=== PATIENT | female | born 1940 | race Caucasian/White ===

== ENCOUNTER 2019-04-02 15:23 | Inpatient (IN) ==
[2019-04-02 15:46] LABS: Basophils % 0.2 %; Hematocrit 45.1 % (35.3-44.9); Immature Granulocytes % 0.4 % (0-4); Lymphocytes % 7.3 %; Mean Corpuscular HGB Conc 35.5 g/dL (31.6-35.5); Mean Corpuscular Hemoglobin 30.9 pg (28.0-33.3); Mean Corpuscular Volume 87.2 fL (83.0-100.0); Mean Platelet Volume 11.8 fL (9.4-12.4); Monocytes # 1.5 K/mcL (0.0-1.3); Monocytes % 10.5 %; Neutrophils # 11.5 K/mcL (1.6-8.9); Platelet Count 314 K/mcL (140-400); Red Blood Count 5.17 M/mcL (3.82-4.97); Red Cell Distribution Width 13.5 % (11.5-14.5); Segmented Neutrophils % 81.6 %; White Blood Count 14.1 K/mcL (4.3-11.1)
[2019-04-02 16:07] LABS: Calcium 9.4 mg/dL (8.6-10.3); Potassium 3.8 mEq/L (3.5-5.1)
[2019-04-02] MEDS ORDERED: Ondansetron 4 MG/2 ML VIAL IVP ONE (16:42)
[2019-04-02] MEDS ORDERED: Ringers Solution, Lactated 1,000 ML IVC ONE (16:51)
[2019-04-02 17:02] LABS: Bilirubin,Urine Negative (Negative); Blood,Urine Negative (Negative); Clarity,Urine Cloudy (Clear); Color,Urine Yellow (Yellow); Glucose,Urine (UA) Normal (Normal); Ketones,Urine Negative (Negative); Leukocyte Esterase,Urine Small (Negative); Nitrite,Urine Negative (Negative); PH,Urine 5.5 pH Units (5.0-8.0); Protein,Urine 30 mg/dL (Neg-Trace); Specific Gravity,Urine 1.027 (1.010-1.025); Urobilinogen,Urine Normal (Normal)
[2019-04-02 17:04] LABS: Bacteria,Urine None Seen per hpf (None-Few); Hyaline Casts,Urine Few per lpf (None-Few); Squamous Epithelial Cell,Urine Many per lpf (None-Few)
[2019-04-02 17:11] LABS: Sodium, Urine 12.4 mEq/L
[2019-04-02] MEDS ORDERED: Ringers Solution, Lactated 1,000 ML ONE (17:12)
[2019-04-02 17:25] LABS: RBC,Urine 0-3 per hpf (0-3)
[2019-04-02 18:08] LABS: Albumin 3.9 g/dL (3.5-5.7); Albumin/Globulin Ratio 1.1 (1.1-2.2); Bilirubin,Indirect 0.8 mg/dL (0.0-1.0); Bilirubin,Total 0.8 mg/dL (0.3-1.0); Globulin 3.6 g/dL (2.4-3.5); Magnesium 2.2 mg/dL (1.6-2.6); Total Protein 7.5 g/dL (6.4-8.9)
[2019-04-02] MEDS ORDERED: *HR* Promethazine 25 MG/ML VIAL IVP ONE (18:39)
[2019-04-02] MEDS ORDERED: Naloxone 0.4 MG/ML INJ IVP PRN (20:37)
[2019-04-02 21:24] LABS: Calcium 8.9 mg/dL (8.6-10.3); Potassium 3.2 mEq/L (3.5-5.1)
[2019-04-03 01:21] LABS: Calcium 8.8 mg/dL (8.6-10.3)
[2019-04-03 05:09] LABS: Hematocrit 39.8 % (35.3-44.9); Hemoglobin 13.8 g/dL (11.5-15.4); Mean Corpuscular HGB Conc 34.7 g/dL (31.6-35.5); Mean Corpuscular Hemoglobin 30.5 pg (28.0-33.3); Mean Corpuscular Volume 88.1 fL (83.0-100.0); Mean Platelet Volume 11.8 fL (9.4-12.4); Platelet Count 302 K/mcL (140-400); Red Blood Count 4.52 M/mcL (3.82-4.97); Red Cell Distribution Width 13.4 % (11.5-14.5); White Blood Count 13.8 K/mcL (4.3-11.1)
[2019-04-03 05:23] LABS: Calcium 9.1 mg/dL (8.6-10.3); Potassium 3.2 mEq/L (3.5-5.1)
[2019-04-03] MEDS: Ondansetron 4 MG/2 ML VIAL IVP PRN ×2 (05:37→11:31)
[2019-04-03] MEDS ORDERED: Lidocaine Jelly 11 ml Syringe MM STA (08:15)
[2019-04-03] MEDS ORDERED: *HR* Promethazine 25 MG/ML VIAL IVP ONE (08:44)
[2019-04-03] MEDS ORDERED: Ondansetron 4 MG/2 ML VIAL IVP ONE ×2 (08:44→17:21)
[2019-04-03] MEDS ORDERED: Pantoprazole 40 MG VIAL IVP SCH (09:00)
[2019-04-03 09:33] LABS: Calcium 9.1 mg/dL (8.6-10.3); Potassium 3.3 mEq/L (3.5-5.1)
[2019-04-03] MEDS ORDERED: 0.9 % Sodium Chloride 1,000 ML IVC SCH (11:30)
[2019-04-03] MEDS ORDERED: Acetaminophen IV 1,000 MG/100 ML INFUS..BTL IVPB ONE (12:12)
[2019-04-03] MEDS ORDERED: Albuterol 2.5 MG/3 ML NEBULIZER IH ONE (12:28)
[2019-04-03] MEDS ORDERED: Ondansetron 4 MG/2 ML VIAL ONE (15:11)
[2019-04-03] MEDS ORDERED: *HR* Propofol 200 MG/20 ML VIAL IVP ONE (15:11)
[2019-04-03] MEDS ORDERED: Lidocaine -MPF 2% 2 ML VIAL ONE (15:11)
[2019-04-03] MEDS ORDERED: *HR* FentaNYL (PF) 100 MCG/2 ML VIAL ONE (15:11)
[2019-04-03] MEDS ORDERED: Dexamethasone 4 MG/ML VIAL ONE (15:11)
[2019-04-03] MEDS ORDERED: Lidocaine HCL 4 ML Topical Solution (Laryng-O-Jet Kit Sterile Pak) TP ONE (15:12)
[2019-04-03] MEDS ORDERED: Neostigmine Methylsulfate 3 MG/3 ML SYRINGE ONE (15:12)
[2019-04-03] MEDS ORDERED: *HR* Succinylcholine 200 MG/10 ML VIAL IVP ONE (15:12)
[2019-04-03] MEDS ORDERED: *HR* PHENYLEPHRINE 1,000 MCG/10 ML SYRINGE IVP ONE (15:13)
[2019-04-03] MEDS ORDERED: EPHEDrine 50 MG/ML VIAL ONE (15:14)
[2019-04-03] MEDS: *HR* HYDROmorphone (PF) 1 MG/ML SYRINGE IVP PRN ×2 (17:28→17:36)
[2019-04-03] MEDS ORDERED: Ringers Solution, Lactated 1,000 ML ONE (17:52)
[2019-04-03] MEDS ORDERED: Ondansetron 4 MG/2 ML VIAL IVP PRN (18:26)
[2019-04-03] MEDS: Acetaminophen IV 1,000 MG/100 ML INFUS..BTL IVPB SCH (18:44)
[2019-04-03 20:46] LABS: Calcium 8.4 mg/dL (8.6-10.3); Potassium 3.1 mEq/L (3.5-5.1)
[2019-04-04] MEDS: Acetaminophen IV 1,000 MG/100 ML INFUS..BTL IVPB SCH ×5 (00:35→23:34)
[2019-04-04] MEDS: ceFAZolin 1,000 MG in Water for inj. (sterile) 10 ML IVP SCH ×3 (00:37→17:51)
[2019-04-04 02:29] LABS: Basophils % 0.3 %; Hematocrit 39.3 % (35.3-44.9); Hemoglobin 13.9 g/dL (11.5-15.4); Immature Granulocytes % 1.4 % (0-4); Lymphocytes # 0.4 K/mcL (0.6-4.6); Lymphocytes % 3.3 %; Mean Corpuscular HGB Conc 35.4 g/dL (31.6-35.5); Mean Corpuscular Hemoglobin 30.4 pg (28.0-33.3); Mean Platelet Volume 11.9 fL (9.4-12.4); Monocytes % 7.5 %; Platelet Count 305 K/mcL (140-400); Red Blood Count 4.57 M/mcL (3.82-4.97); Red Cell Distribution Width 13.7 % (11.5-14.5); Segmented Neutrophils % 87.5 %; White Blood Count 12.6 K/mcL (4.3-11.1)
[2019-04-04 02:56] LABS: Calcium 8.3 mg/dL (8.6-10.3); Magnesium 2.3 mg/dL (1.6-2.6); Potassium 3.6 mEq/L (3.5-5.1)
[2019-04-04 03:07] LABS: Platelet Estimate Normal (Normal)
[2019-04-04] MEDS: 0.9 % Sodium Chloride 1,000 ML IVC SCH ×3 (08:22→19:38)
[2019-04-04] MEDS: Pantoprazole 40 MG VIAL IVP SCH (08:35)
[2019-04-04 15:56] LABS: Calcium 8.1 mg/dL (8.6-10.3); Potassium 3.2 mEq/L (3.5-5.1)
[2019-04-04] MEDS: *HR* Heparin 5,000 UNIT/ML VIAL SQ SCH ×2 (17:51→19:17)
[2019-04-05 01:13] LABS: Hematocrit 37.7 % (35.3-44.9); Hemoglobin 13.1 g/dL (11.5-15.4); Mean Corpuscular HGB Conc 34.7 g/dL (31.6-35.5); Mean Corpuscular Hemoglobin 30.6 pg (28.0-33.3); Mean Corpuscular Volume 88.1 fL (83.0-100.0); Mean Platelet Volume 11.9 fL (9.4-12.4); Neutrophils # 7.1 K/mcL (1.6-8.9); Platelet Count 283 K/mcL (140-400); Red Blood Count 4.28 M/mcL (3.82-4.97); Red Cell Distribution Width 14.1 % (11.5-14.5); White Blood Count 10.4 K/mcL (4.3-11.1)
[2019-04-05 01:29] LABS: Magnesium 2.5 mg/dL (1.6-2.6); Potassium 3.1 mEq/L (3.5-5.1)
[2019-04-05 02:17] LABS: Platelet Estimate Normal (Normal)
[2019-04-05 02:18] LABS: Lymphocytes # 2.5 K/mcL (0.6-4.6); Monocytes # 0.8 K/mcL (0.0-1.3); Reactive Lymphocytes Present (Not Present)
[2019-04-05] MEDS: Acetaminophen IV 1,000 MG/100 ML INFUS..BTL IVPB SCH ×3 (05:04→18:42)
[2019-04-05] MEDS: *HR* Heparin 5,000 UNIT/ML VIAL SQ SCH ×2 (05:04→18:41)
[2019-04-05] MEDS: 0.9 % Sodium Chloride 1,000 ML IVC SCH (08:58)
[2019-04-05] MEDS: Pantoprazole 40 MG VIAL IVP SCH (09:44)
[2019-04-06] MEDS: Acetaminophen IV 1,000 MG/100 ML INFUS..BTL IVPB SCH ×4 (00:47→18:18)
[2019-04-06] MEDS: *HR* Heparin 5,000 UNIT/ML VIAL SQ SCH ×2 (03:14→18:19)
[2019-04-06] MEDS: 0.9 % Sodium Chloride 1,000 ML IVC SCH (03:14)
[2019-04-06 05:50] LABS: BUN/Creatinine Ratio 36 (6-26); Blood Urea Nitrogen 27 mg/dL (8-23); Carbon Dioxide 31 mEq/L (23-29); Chloride 98 mEq/L (98-107); Glucose 88 mg/dL (70-105); Osmolality,Calculated 293 (280-300); Potassium 3.2 mEq/L (3.5-5.1); Sodium 139 mEq/L (136-145); eGFR For African Americans > 60 (> 60); eGFR For Non-African Americans > 60 (> 60)
[2019-04-06 09:17] LABS: Basophils % 0.1 %; Eosinophils # 0.1 K/mcL (0.0-0.6); Eosinophils % 0.9 %; Hematocrit 32.3 % (35.3-44.9); Immature Granulocytes % 12.7 % (0-4); Lymphocytes # 1.5 K/mcL (0.6-4.6); Mean Corpuscular HGB Conc 33.4 g/dL (31.6-35.5); Mean Corpuscular Hemoglobin 30.6 pg (28.0-33.3); Mean Corpuscular Volume 91.5 fL (83.0-100.0); Mean Platelet Volume 11.3 fL (9.4-12.4); Monocytes # 1.1 K/mcL (0.0-1.3); Monocytes % 12.3 %; Neutrophils # 5.1 K/mcL (1.6-8.9); Platelet Count 300 K/mcL (140-400); Red Blood Count 3.53 M/mcL (3.82-4.97); Red Cell Distribution Width 14.5 % (11.5-14.5); White Blood Count 8.9 K/mcL (4.3-11.1)
[2019-04-06 09:29] LABS: Hemoglobin 10.8 g/dL (11.5-15.4)
[2019-04-06 09:34] LABS: Platelet Estimate Normal (Normal); Reactive Lymphocytes Present (Not Present); Toxic Granulation Present (Not Present)
[2019-04-06] MEDS: Pantoprazole 40 MG VIAL IVP SCH (09:36)
[2019-04-06] MEDS: Ringers Solution, Lactated 1,000 ML IVC SCH (09:36)
[2019-04-06 09:37] LABS: Magnesium 1.9 mg/dL (1.6-2.6); Phosphorous 1.3 mg/dL (2.7-4.5)
[2019-04-06] MEDS ORDERED: Famotidine 20 MG/2 ML VIAL IVP ONE (20:18)
[2019-04-07] MEDS: Acetaminophen IV 1,000 MG/100 ML INFUS..BTL IVPB SCH ×2 (00:41→08:23)
[2019-04-07 02:01] LABS: BUN/Creatinine Ratio 25 (6-26); Blood Urea Nitrogen 19 mg/dL (8-23); Calcium 7.7 mg/dL (8.6-10.3); Carbon Dioxide 28 mEq/L (23-29); Chloride 99 mEq/L (98-107); Glucose 106 mg/dL (70-105); Magnesium 1.9 mg/dL (1.6-2.6); Osmolality,Calculated 285 (280-300); Potassium 3.4 mEq/L (3.5-5.1); Sodium 136 mEq/L (136-145); eGFR For African Americans > 60 (> 60); eGFR For Non-African Americans > 60 (> 60)
[2019-04-07] MEDS: Ringers Solution, Lactated 1,000 ML IVC SCH (07:24)
[2019-04-07] MEDS ORDERED: Potassium Chloride Elixir 20 MEQ/15 ML UDC PO ONE (08:20)
[2019-04-07] MEDS: Pantoprazole 40 MG VIAL IVP SCH (08:22)
[2019-04-07] MEDS: *HR* Heparin 5,000 UNIT/ML VIAL SQ SCH ×2 (08:22→18:28)
[2019-04-07] MEDS ORDERED: *HR* OxyCODONE/APAP 5/325 TABLET PO PRN (08:24)
[2019-04-07] MEDS ORDERED: Acetaminophen 325 MG TABLET PO PRN (08:24)
[2019-04-07 09:06] LABS: Hemoglobin 11.4 g/dL (11.5-15.4); Mean Corpuscular HGB Conc 33.5 g/dL (31.6-35.5); Mean Corpuscular Hemoglobin 30.6 pg (28.0-33.3); Mean Corpuscular Volume 91.2 fL (83.0-100.0); Mean Platelet Volume 11.6 fL (9.4-12.4); Nucleated Red Blood Cells 0.2 /100 WBC (0); Platelet Count 328 K/mcL (140-400); Red Blood Count 3.73 M/mcL (3.82-4.97); Red Cell Distribution Width 14.9 % (11.5-14.5); White Blood Count 10.2 K/mcL (4.3-11.1)
[2019-04-07] MEDS: Aspirin Enteric Coated 81 MG Tablet PO SCH (09:20)
[2019-04-07] MEDS: hydrOXYzine pamoate 25 MG CAPSULE PO SCH ×3 (09:20→22:03)
[2019-04-07 09:42] LABS: Lymphocytes # 3.5 K/mcL (0.6-4.6); Monocytes # 0.6 K/mcL (0.0-1.3); Neutrophils # 5.9 K/mcL (1.6-8.9); Platelet Estimate Normal (Normal); Reactive Lymphocytes Present (Not Present)
[2019-04-08 04:07] LABS: Hematocrit 33.1 % (35.3-44.9); Hemoglobin 10.8 g/dL (11.5-15.4); Mean Corpuscular HGB Conc 32.6 g/dL (31.6-35.5); Mean Corpuscular Hemoglobin 29.9 pg (28.0-33.3); Mean Corpuscular Volume 91.7 fL (83.0-100.0); Mean Platelet Volume 10.7 fL (9.4-12.4); Monocytes # 0.7 K/mcL (0.0-1.3); Platelet Count 302 K/mcL (140-400); Red Blood Count 3.61 M/mcL (3.82-4.97); Red Cell Distribution Width 14.7 % (11.5-14.5); White Blood Count 8.9 K/mcL (4.3-11.1)
[2019-04-08 04:25] LABS: BUN/Creatinine Ratio 21 (6-26); Blood Urea Nitrogen 15 mg/dL (8-23); Calcium 7.7 mg/dL (8.6-10.3); Carbon Dioxide 27 mEq/L (23-29); Chloride 100 mEq/L (98-107); Glucose 99 mg/dL (70-105); Magnesium 1.7 mg/dL (1.6-2.6); Osmolality,Calculated 279 (280-300); Potassium 4.1 mEq/L (3.5-5.1); Sodium 134 mEq/L (136-145); eGFR For African Americans > 60 (> 60); eGFR For Non-African Americans > 60 (> 60)
[2019-04-08 04:59] LABS: Lymphocytes # 2.5 K/mcL (0.6-4.6); Neutrophils # 5.5 K/mcL (1.6-8.9)
[2019-04-08 05:00] LABS: Smudge Cells Present (Not Present)
[2019-04-08] MEDS: *HR* Heparin 5,000 UNIT/ML VIAL SQ SCH ×2 (06:35→18:06)
[2019-04-08] MEDS: Aspirin Enteric Coated 81 MG Tablet PO SCH (09:38)
[2019-04-08] MEDS: hydrOXYzine pamoate 25 MG CAPSULE PO SCH ×2 (09:38→15:43)
[2019-04-08 11:37] VITALS: BP 123/70
== END 2019-04-08 18:26 | disposition home or self-care (01) | DRG 330 ==
LOC: EMEROOARM 15:23 → 3ANU 15:23 → SUATTDRO 18:56 → 3ANU 19:41
PROVIDERS: ADMIT Internal Medicine; ATTEND Internal Medicine